=== PATIENT | female | born 1950 | race Caucasian/White ===

== ENCOUNTER → 2018-05-23 13:51 | Outpatient (CLI) | payer OTHER, SELFPAY ==
[2018-05-25 17:33] LABS: Fecal Immunochemical Test NOT DETECTED
== END ==
PROVIDERS: Visit Provider Registered Nurse
DX: Z12.11 Encounter for screening for malignant neoplasm of colon (principal)
CPT/HCPCS: 82274

== ENCOUNTER → 2018-05-28 09:57 | Outpatient (CLI) | payer OTHER, SELFPAY | PROVIDERS: Family Provider Family Medicine; PCP Family Medicine; Visit Provider Registered Nurse | DX: M85.852 Other specified disorders of bone density and structure, left thigh (principal); Z78.0 Asymptomatic menopausal state | CPT/HCPCS: 77080 ==

== ENCOUNTER → 2019-03-29 09:03 | Outpatient (CLI) | payer OTHER, SELFPAY ==
--- NOTE | 2019-03-29 09:05 | DI.RAD.S_ITS ---
PROCEDURE: XR KNEE LT 3V INDICATIONS: Left knee pain TECHNIQUE: 3 views of the left knee were acquired. COMPARISON: [facility], , KNEE 3V RIGHT, 06/12/2014, 16:04. FINDINGS: Bones: No fractures or dislocations but there is moderately severe medial facet patellofemoral joint osteoarthritis seen on the sunrise view, and mild to moderate medial compartment degenerative osteoarthritic change seen on the frontal weight bearing view.. No suspicious bony lesions. Soft tissues: No joint effusion. No suspicious soft tissue calcifications. IMPRESSION: Mild to moderate degenerative knee joint osteoarthritis seen at the medial compartment and more prominently present at the medial facet of the patellofemoral joint but no effusion or loose body or recent trauma is found. Dictated by: Kristopher Mcgraw M.D. on 03/29/2019 at 9:55 Approved by: Kristopher Mcgraw M.D. on 03/29/2019 at 9:57
--- NOTE | 2019-03-29 09:05 | DI.RAD.S_ITS ---
PROCEDURE: XR HIP W PEL IF DONE LT MIN 4V INDICATIONS: Bilateral hip pain TECHNIQUE: AP pelvis with lateral view(s) of the bilateral hip(s). COMPARISON: None. FINDINGS: Bones: No fractures or dislocations. Pelvic ring appears intact. No suspicious bony lesions. There is symmetric mild hip joint osteoarthritis perhaps slightly greater on the right than the left. Soft tissues: The visualized bowel gas pattern is normal. No suspicious soft tissue calcifications. Prior bilateral tubal ligation clips, central calcified presumed uterine fibroid centered exactly at the midline between these 2 ligation clips. IMPRESSION: Mild hip joint osteoarthritis present bilaterally, very slightly greater on the right than the left. Dictated by: Kristopher Mcgraw M.D. on 03/29/2019 at 9:57 Approved by: Kristopher Mcgraw M.D. on 03/29/2019 at 9:58
--- NOTE | 2019-03-29 09:05 | DI.RAD.S_ITS ---
PROCEDURE: XR KNEE RT 3V INDICATIONS: Right knee pain TECHNIQUE: 3 views of the right knee were acquired. COMPARISON: [facility], , KNEE 3V RIGHT, 06/12/2014, 16:04. FINDINGS: Bones: No fractures or dislocations. No suspicious bony lesions. At the medial compartment of the right knee there is a mild degree of degenerative joint space narrowing, previously the case also in May of 2014. At the medial facet of the patellofemoral joint there is moderately severe degenerative osteoarthritic change, slightly advanced from the comparison study in May of 2014. No effusion or loose body. Soft tissues: No joint effusion. No suspicious soft tissue calcifications. IMPRESSION: Slight interval worsening of degenerative right knee joint osteoarthritis involving the medial facet of the patellofemoral joint to a greater degree than the medial compartment of the knee on the frontal weight-bearing view. No effusion or loose body seen, no recent trauma found. Dictated by: Kristopher Mcgraw M.D. on 03/29/2019 at 9:58 Approved by: Kristopher Mcgraw M.D. on 03/29/2019 at 10:00
== END ==
PROVIDERS: PCP Registered Nurse; Visit Provider Registered Nurse
DX: M25.551 Pain in right hip (principal); M25.552 Pain in left hip; M25.562 Pain in left knee; M25.561 Pain in right knee; M16.0 Bilateral primary osteoarthritis of hip; M17.0 Bilateral primary osteoarthritis of knee
CPT/HCPCS: 73522; 73562

== ENCOUNTER → 2019-05-17 07:46 | Outpatient (CLI) | payer OTHER, SELFPAY ==
[2019-05-17 09:01] LABS: Hemoglobin A1C% w Est Avg Glu 5.3 % (4.0-6.0)
[2019-05-17 09:10] LABS: Cholesterol 237 mg/dL (140-199); HDL Cholesterol 64 mg/dL (40-60); LDL Cholesterol Calculated 163 mg/dL (<100); Triglycerides 51 mg/dL (35-150)
== END ==
PROVIDERS: PCP Registered Nurse; Visit Provider Registered Nurse
DX: E78.5 Hyperlipidemia, unspecified (principal); Z13.1 Encounter for screening for diabetes mellitus; E78.1 Pure hyperglyceridemia
CPT/HCPCS: 36415; 80061; 83036

== ENCOUNTER → 2019-05-23 09:44 | Outpatient (CLI) | payer OTHER, SELFPAY ==
--- NOTE | 2019-05-23 | DI.MG.S_ITS ---
BILATERAL DIGITAL SCREENING MAMMOGRAM 3D/2D WITH CAD: 05/23/2019 CLINICAL: Routine screening. Family history of breast cancer. Comparison is made to exams dated: 05/24/2017 mammogram, 01/16/2015 mammogram, and 01/17/2012 mammogram - [facility]. The tissue of both breasts is heterogeneously dense. This may lower the sensitivity of mammography. Current study was also evaluated with a Computer Aided Detection (CAD) system. There is a benign mass in the right breast. There also are benign calcifications in both breasts. No significant masses, calcifications, or other findings are seen in either breast. There has been no significant interval change. IMPRESSION: There is no mammographic evidence of malignancy. A 1 year screening mammogram is recommended. This exam was interpreted at Station ID: [id number]. NOTE: For mammograms, a report in lay terms will be sent to the patient. Approximately 15% of breast malignancies will not be visualized mammographically. In the management of a palpable breast mass, a negative mammogram must not discourage biopsy of a clinically suspicious lesion. Electronically Signed By: Shashank james/miranda:05/23/2019 11:47:51 letter sent: Normal Exam ACR BI-RADS Category 2: Benign Finding(s) 3342F
== END ==
PROVIDERS: PCP Registered Nurse; Visit Provider Registered Nurse
DX: Z12.31 Encounter for screening mammogram for malignant neoplasm of breast (principal); Z80.3 Family history of malignant neoplasm of breast
CPT/HCPCS: 77063; 77067

== ENCOUNTER → 2019-05-27 16:39 | Outpatient (CLI) | payer OTHER, SELFPAY ==
[2019-05-29 15:22] LABS: Fecal Immunochemical Test NOT DETECTED (NOT DETECTED)
== END ==
PROVIDERS: PCP Registered Nurse; Visit Provider Registered Nurse
DX: Z12.11 Encounter for screening for malignant neoplasm of colon (principal)
CPT/HCPCS: 82274

== ENCOUNTER → 2020-05-28 09:59 | Outpatient (CLI) | payer OTHER, SELFPAY ==
[2020-05-28 12:03] LABS: Cholesterol 206 mg/dL (140-199); HDL Cholesterol 58 mg/dL (40-60); LDL Cholesterol Calculated 126 mg/dL (<100); Triglycerides 109 mg/dL (35-150)
[2020-05-28 13:09] LABS: TSH w/ Reflex to FT4 1.62 uIU/mL (0.47-4.68)
== END ==
PROVIDERS: PCP Family Medicine; Referring Provider Family Medicine; Visit Provider Family Medicine
DX: Z12.11 Encounter for screening for malignant neoplasm of colon (principal); Z13.29 Encounter for screening for other suspected endocrine disorder; E78.5 Hyperlipidemia, unspecified
CPT/HCPCS: 36415; 80061; 84443

== ENCOUNTER → 2020-06-27 11:10 | Outpatient (CLI) | payer OTHER, SELFPAY ==
[2020-06-29 11:53] LABS: COVID19 Sendout Not Detected (Not Detect)
== END ==
PROVIDERS: PCP Family Medicine; Visit Provider Nurse Practitioner
DX: Z11.59 Encounter for screening for other viral diseases (principal)
CPT/HCPCS: 87635

== ENCOUNTER 2020-06-30 07:38 | Day surgery (SDC) | payer OTHER, SELFPAY ==
--- NOTE | 2020-06-30 | PATH_ITS ---
[facility] Accession Number: [id number] . 01 Material submitted: . colon - POLYP AT 15CM . 01 Clinical history: . SDC . 02 Diagnosis: Colon, Polyp at 15 cm, Biopsy: Hyperplastic polyp. MRV 07/02/2020 1019 Local . 02 Electronically signed: . Sofia Saul MD, Pathologist NPI- [id number] . 01 Gross description: . The specimen is received in formalin, labeled polyp at 15 cm and consists of two blanc fragments of soft tissue, measuring 0.6 x 0.5 x 0.2 cm in aggregate. The specimen is entirely submitted in cassette A1. ([id number]) /[facility] 07/01/2020 1746 Local . 02 Pathologist provided ICD-10: K63.5 . 02 CPT . 942576 Performed at: 01 [facility] [address] [facility], [place], [place] [id number] MD Ramo Lazo MD Phone: [phone] Performed at: 02 [facility] [place] [address] [place], [place] [id number] MD Sofia Saul MD Phone: [phone]
[2020-06-30 08:06] VITALS: BP 146/80; PULSE 66; RESP 16; TEMP 36; O2SAT 98; BMI 23.3
[2020-06-30] MEDS: LACTATED RINGERS 1,000 ML 200 ML IV (08:14)
--- NOTE | 2020-06-30 08:55 | PM.HP.1 ---
History of Present Illness History of Present Illness Date Patient Seen: 06/30/20 Time Patient Seen: 08:55 Chief complaint: SDC Narrative: Patient is a woman who has never had a colonoscopy she is here for her 1st colonoscopy. She has no family history of colon cancer. She does not have any blood in her stool. Patient History Medical History (Updated 06/30/20 @ 08:57 by Andre Baum MD) Anesthesia complication (Resolved ~1988) Callus of foot (Acute) Chronic low back pain (Acute) Clavicle fracture (Resolved) Foot pain (Chronic) Hallux valgus (acquired) (Acute) History of syncope (Acute) Measles (Resolved) Menopausal state (Chronic) Mumps (Resolved) Periodic health assessment, general screening, adult (Acute) Pes planus of both feet (Acute) Surgical History S/P BSO (bilateral salpingo-oophorectomy) (Acute) Status post tubal ligation (Resolved) Family & Social History Family History Brother Age: 72 Heart problem Father Alcoholism Heart disease Cancer of soft tissue of arm Mother CVA (cerebral vascular accident) Grandfather No problems noted. Grandmother No problems noted. Grandfather No problems noted. Grandmother No problems noted. Sister No problems noted. Social History: household members spouse Tobacco & Substance use: Smoking Status Never smoker alcohol intake current alcohol intake frequency holiday/special occasion Substance Use Type does not use Meds Home Medications and Allergies Home Medications Medication Instructions Recorded Confirmed Type multivitamin with minerals 3 tab PO DAILY tab 05/22/18 05/25/20 History Calcium with D3 PO 05/23/19 05/25/20 History omega-3 fatty acids 1,000 mg 2,000 mg PO DAILY 05/23/19 05/25/20 History capsule potassium PO 05/23/19 05/25/20 History clotrimazole-betamethasone 1 1 applictn TOP BID PRN #15 gram 05/29/20 Rx %-0.05 % topical cream terbinafine HCl 250 mg tablet 250 mg PO DAILY #90 tab 05/29/20 Rx Allergies Allergy/AdvReac Type Severity Reaction Status Date / Time codeine Allergy Mild Verified 06/27/20 11:09 Review of Systems Review of Systems Narrative: Had a back issue in the past due to degenerative disease ROS: Yes All systems reviewed with the patient and are negative except as otherwise documented Exam Vital Signs (past 8 hours): - 06/30/20 08:06 Temperature 96.8 F L Pulse Rate 66 Respiratory Rate 16 Blood Pressure 146/80 H Pulse Oximetry 98 Oxygen Delivery Method Room Air Narrative Exam Narrative: Pleasant cooperative patient no apparent distress. Lungs are clear to auscultation. No rales or rhonchi. Heart regular rate and rhythm no murmur gallop. Abdomen is soft nontender without mass. No obvious hernias. Patient is alert and oriented x3. Assessment & Plan Assessment & Plan narrative: The patient for a screening colonoscopy. I have discussed the procedure with them. Risks of bleeding, perforation which would necessitate major operation, failure to find remove all lesions, the potential tattoo were all discussed. All questions were answered. They wished to proceed.
--- NOTE | 2020-06-30 09:10 | PM.PREOP ---
Pre-operative Note COVID-19 COVID-19 status: Negative Result date/Date tested (Pos, Neg/Pending): 06/27/20 Interval Note History & Physical reviewed/Exam performed by Physician: Yes Changes to H&P: No ASA Class (for procedural sedation): I
[2020-06-30] MEDS: MIDAZOLAM 5 MG/5 ML VIAL IV (09:11)
[2020-06-30] MEDS: fentaNYL 250 MCG/5 ML INJ IV (09:11)
--- NOTE | 2020-06-30 09:39 | PM.OP.ENDO ---
Operative Date/Time/Diagnoses Date of procedure: 06/30/20 Time of procedure: 09:39 Pre-op diagnosis: Screening exam. This is her 1st colonoscopy. Post-op diagnosis: same (One small polyp at 15 cm. ) Procedure & Clinicians Study performed: Colonoscopy Same procedure as scheduled: Yes Indications: Screening Surgeon: Andre Baum Procedure Notes SCOAP/Timeout: Performed Procedure in detail: The patient was placed in the left lateral decubitus position and underwent IV sedation directed by the surgeon consisting of fentanyl and Versed. Digital exam was unremarkable. The scope was inserted and advanced through the rectum into the sigmoid, descending, transverse, and ascending colon. No lesions were seen. The cecum was reached identified by the ileocecal valve and the appendiceal opening. The scope was gradually brought out. One Polyp was found at 15 cm from the anal verge and was biopsied and removed. Was quite small.. The scope ultimately was retroflexed in the rectum. The appearance was remarkable for scarring an old hemorrhoidal disease. There was no active inflammation or ulceration.. The scope was removed and the patient tolerated the procedure well. Prep was excellent. Scope withdrawal time: 10 minutes (12 total) Sedation minutes: 24 Findings: polyp (One small polyp in the rectum) Specimen(s): other (Polyp) Complications: none Post-procedure Recommendations: Colonscopy in 5 years (If the lesion is not neoplastic (adenomatous) 10 years would be more appropriate.) Follow up: as needed Disposition: PACU
[2020-06-30 09:41] VITALS: BP 127/71; PULSE 61; RESP 12; TEMP 36.4; O2SAT 97
[2020-06-30 09:45] VITALS: BP 118/69; PULSE 53; RESP 10; O2SAT 96
[2020-06-30 09:49] VITALS: BP 122/68; PULSE 55; RESP 11; O2SAT 96
[2020-06-30 09:54] VITALS: BP 142/78; PULSE 65; RESP 18; TEMP 36.2; O2SAT 99
== END 2020-06-30 10:12 | disposition home or self-care (01) ==
PROVIDERS: PCP Family Medicine; Referring Provider Specialist; Visit Provider Specialist
PROC: 0DJD8ZZ Inspection of Lower Intestinal Tract, Via Natural or Artificial Opening Endoscopic (ICD-10-PCS; CPT 45378; principal; 2020-06-30 08:30)
DX: Z12.11 Encounter for screening for malignant neoplasm of colon (principal); K62.1 Rectal polyp
CPT/HCPCS: 45380; 99152; J2250; J3010

== ENCOUNTER → 2020-11-12 16:15 | Outpatient (CLI) | payer MEDICARE, SELFPAY ==
[2020-11-12] MEDS: COVID-19 VACC #1, MRNA(MOD) 100 MCG/0.5 ML VIAL IM (16:22)
== END ==
PROVIDERS: PCP Family Medicine; Visit Provider Internal Medicine
DX: Z23 Encounter for immunization (principal)
CPT/HCPCS: 0011A; 91301

== ENCOUNTER → 2020-12-10 16:09 | Outpatient (CLI) | payer MEDICARE, SELFPAY ==
[2020-12-10] MEDS: COVID-19 VACC #2, MRNA(MOD) 100 MCG/0.5 ML VIAL IM (16:13)
== END ==
PROVIDERS: PCP Family Medicine; Visit Provider Internal Medicine
DX: Z23 Encounter for immunization (principal)
CPT/HCPCS: 0012A; 91301

== ENCOUNTER → 2021-05-18 10:20 | Outpatient (CLI) | payer OTHER, SELFPAY ==
[2021-05-18 12:10] LABS: Alanine Aminotransferase 16 IU/L (<35); Albumin 4.3 g/dL (3.5-5.0); Albumin Globulin Ratio 1.4 (1.0-2.8); Alkaline Phosphatase 107 U/L (38-126); Aspartate Aminotransferase 31 IU/L (14-36); BUN Creatinine Ratio 26.4 (6-22); Bilirubin Total 0.6 mg/dL (0.2-1.3); Blood Urea Nitrogen 23 mg/dL (7-17); Calcium 9.7 mg/dL (8.4-10.2); Carbon Dioxide 30 mmol/L (22-32); Chloride 104 mmol/L (98-107); Estimated Glomerular Filt Rate > 60.0 mL/min (>60); Glucose 95 mg/dL (80-110); HEMOLYSIS < 15 (0-50); Potassium 4.7 mmol/L (3.4-5.1); Sodium 138 mmol/L (137-145); Total Protein 7.3 g/dL (6.3-8.2)
== END ==
PROVIDERS: PCP Family Medicine; Referring Provider Family Medicine; Visit Provider Family Medicine
DX: E78.5 Hyperlipidemia, unspecified (principal); Z12.31 Encounter for screening mammogram for malignant neoplasm of breast
CPT/HCPCS: 36415; 80053

== ENCOUNTER → 2021-07-20 15:17 | Outpatient (CLI) | payer OTHER, SELFPAY ==
--- NOTE | 2021-07-20 15:17 | DI.MG.S_ITS ---
BILATERAL DIGITAL SCREENING MAMMOGRAM 3D/2D WITH CAD: 07/20/2021 CLINICAL: Routine screening. Comparison is made to exams dated: 05/23/2019 mammogram, 05/24/2017 mammogram, and 01/16/2015 mammogram - [facility]. The tissue of both breasts is heterogeneously dense. This may lower the sensitivity of mammography. Current study was also evaluated with a Computer Aided Detection (CAD) system. There is a benign mass in the right breast. There also are benign calcifications in both breasts. No significant masses, calcifications, or other findings are seen in either breast. There has been no significant interval change. IMPRESSION: BENIGN There is no mammographic evidence of malignancy. A 1 year screening mammogram is recommended. This exam was interpreted at Station ID: [id number]. NOTE: For mammograms, a report in lay terms will be sent to the patient. Approximately 15% of breast malignancies will not be visualized mammographically. In the management of a palpable breast mass, a negative mammogram must not discourage biopsy of a clinically suspicious lesion. Electronically Signed By: Ramo peters/miranda:07/21/2021 08:17:24 letter sent: Normal Exam ACR BI-RADS Category 2: Benign Finding(s) 3342F
== END ==
PROVIDERS: PCP Family Medicine; Referring Provider Family Medicine; Visit Provider Family Medicine
DX: Z12.31 Encounter for screening mammogram for malignant neoplasm of breast (principal)
CPT/HCPCS: 77063; 77067

== ENCOUNTER → 2021-08-02 12:59 | Outpatient (CLI) | payer OTHER, SELFPAY ==
[2021-08-02 16:35] LABS: COVID19 -Nasal RAPID Negative (Negative)
== END ==
PROVIDERS: PCP Family Medicine; Visit Provider Physician Assistant
DX: Z01.812 Encounter for preprocedural laboratory examination (principal); Z20.822 Contact with and (suspected) exposure to COVID-19
CPT/HCPCS: 87635; C9803

== ENCOUNTER 2021-08-04 09:10 | Day surgery (SDC) | payer OTHER, SELFPAY ==
--- NOTE | 2021-08-03 19:25 | PM.OP.1 ---
Operative Date/Time/Diagnoses Date of procedure: 08/04/21 Time of procedure: 09:45 Procedure & Clinicians Procedure: Preoperative diagnoses: 1. Right significantcortical and sclerotic cataract 2. Astigmatism which is to be corrected with a toric intraocular lens implant. 3. Desire for a multifocal implant to correct all areas of distance to make her less glasses dependent. 4. Diplopia was need for prisms in glasses 5. Arthritis 5. High myopia Postoperative diagnoses: 1. Cataract removal with phacoemulsification with toric Panoptix multifocal posterior chamber intraocular lens implant placed. Procedure: Phacoemulsification with posterior chamber toric intraocular lens implant. Surgeon: Rafaela Terrell MD Complications: None Specimen: None Implant: TFAT 30 +12.5 [place] 083 Blood loss: None Anesthesia: Retrobulbar with monitored standby Description of procedure: Patient presents with a complaint of decreased vision due to cataract which is affecting activities of daily living. 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 The patient wants surgery to improve vision and astigmatism as well as a multifocal implant. She understands the extra risk of surgery during the COVID-19 epidemic and wishes to proceed. She has tested negative for active COVID-19 virus within 72 hours of the procedure. The patient was taken to the operating room and proparacaine drops placed. Indelible ink espinoza were placed at the 90 and 180 degree meridian. The patient was placed on the operating room table and given IV sedation. A retrobulbar block insert consisting of 6 cc of 2% xylocaine without epinephrine mixed half and half with 0.5% Marcaine with 1 cc of hyaluronidase added is placed between the medial and lateral 1/3 of the inferior orbital rim. The eye is manually massaged for 30 sec, prepped using Betadine solution, and draped in the usual sterile fashion. Temporal approach was made, a 1 mm side-port incision was made 90? from the proposed corneal wound. Phenylephrine 1.5% mixed with 1% xylocaine 0.2 cc was placed into the anterior chamber. Endocoat followed by Healon was then placed. A 2.6 mm clear incision with a 2.6 mm blade was placed at the 170 degree meridian. A 360 degree capsulorrhexis style capsulotomy was then performed with a cystitome needle on a Healon. Hydrodelineation and hydrodissection were performed. The phacoemulsification unit is introduced, and sculpting used to groove the central lens. It is then removed in chopping mode. Epi nucleus is removed with epinuclear mode and irrigation aspiration was used to remove the peripheral cortex. The posterior capsule is polished. The intraocular lens is selected, inspected, power confirmed, and placed in the posterior chamber at the desired meridian of 83? and carefully centered. The pupil was not constricted. The wound was stromally hydrated and tested for leaks, there was none and it was left sutureless. Vigamox 0.1 cc was placed into the anterior chamber. Kenalog 0.2 cc was placed in the superior subconjunctival space. A drop of antibiotic and was placed and the eye was patched and shielded. The patient was stable and returned to the recovery room in excellent condition. Dictated by: Rafaela Terrell MD Copy to: [facility] Same procedure as scheduled: Yes
--- NOTE | 2021-08-04 08:09 | PM.PREOP ---
Pre-operative Note COVID-19 COVID-19 status: Negative Interval Note History & Physical reviewed/Exam performed by Physician: Yes Changes to H&P: No
[2021-08-04] MEDS: PROPARACAINE 0.5% OPHTH SOL 2 DROPS EYE-OP ×2 (09:23→11:04)
[2021-08-04] MEDS: CATARACT EYE COMPOUND (10 DROPS/SYRINGE) 3 DROPS EYE-OP (09:31)
[2021-08-04 09:33] VITALS: BP 152/75; PULSE 51; RESP 16; TEMP 36.1; O2SAT 99; BMI 22.4
--- NOTE | 2021-08-04 11:11 | SUR.OPER ---
Supine on eye stretcher, head on extension cradle secured with tape. Arms tucked at sides with blanket. Pillow under knees.
[2021-08-04] MEDS: LIDOCAINE 2% 4 ML, BUPIVACAINE 0.5% (PF) 4 ML, HYALURONIDASE 150 UNIT INJ (11:13)
[2021-08-04] MEDS: HYALURONATE SODIUM 30 MG-10 MG/ML SYRINGES 1 BOX INTRAOCULA (11:27)
[2021-08-04] MEDS: MOXIFLOXACIN INJ 4 MG/0.8 ML VIAL 0.5 MG EYE-OP (11:27)
[2021-08-04] MEDS: ERYTHROMYCIN OPHTH 1 GM OINT 1 APPLIC EYE-RIGHT (11:27)
[2021-08-04] MEDS: PHENYLEPHRINE/LIDOCAINE VIAL (OR) 0.2 ML EYE-OP (11:28)
[2021-08-04] MEDS: TRIAMCINOLONE 50 MG/5 ML VIAL INJ (11:28)
[2021-08-04] MEDS: BALANCED SALT IRRIG SOLN NO.2 500 ML, EPINEPHrine 1 MG IRR (11:28)
[2021-08-04 12:06] VITALS: BP 144/66; PULSE 66; RESP 18; TEMP 36.6; O2SAT 99
== END 2021-08-04 12:15 | disposition home or self-care (01) ==
LOC: OR 09:12
PROVIDERS: PCP Family Medicine; Referring Provider Ophthalmology; Visit Provider Ophthalmology
PROC: (CPT 66984; principal; 2021-08-04 09:45)
DX: H25.811 Combined forms of age-related cataract, right eye (principal); H52.201 Unspecified astigmatism, right eye; H53.2 Diplopia; H52.10 Myopia, unspecified eye
CPT/HCPCS: 66984; J0171; J2704; J3301; J3470; V2788

== ENCOUNTER → 2021-08-16 12:58 | Outpatient (CLI) | payer OTHER, SELFPAY ==
[2021-08-16 15:27] LABS: COVID19 -Nasal RAPID Negative (Negative)
== END ==
PROVIDERS: PCP Family Medicine; Visit Provider Nurse Practitioner Family
DX: Z20.822 Contact with and (suspected) exposure to COVID-19 (principal); Z01.812 Encounter for preprocedural laboratory examination
CPT/HCPCS: 87635; C9803

== ENCOUNTER 2021-08-18 07:26 | Day surgery (SDC) | payer OTHER, SELFPAY ==
[2021-08-18] MEDS: PROPARACAINE 0.5% OPHTH SOL 2 DROPS EYE-OP (07:41)
[2021-08-18 07:44] VITALS: BP 125/77; PULSE 58; RESP 16; TEMP 36.8; O2SAT 95; BMI 22.1
[2021-08-18] MEDS: CATARACT EYE COMPOUND (10 DROPS/SYRINGE) 3 DROPS EYE-OP (07:49)
--- NOTE | 2021-08-18 08:01 | PM.PREOP ---
Pre-operative Note COVID-19 COVID-19 status: Negative Interval Note History & Physical reviewed/Exam performed by Physician: Yes Changes to H&P: No
--- NOTE | 2021-08-18 08:02 | P.OP_ITS ---
Operative Date/Time/Diagnoses Date of procedure: 08/18/21 Time of procedure: 08:45 Procedure & Clinicians Procedure: Preoperative diagnoses: 1. Significant left cortical and Nuclear sclerotic cataract 2. Astigmatism which is to be corrected with a toric intraocular lens implant. 3. Presbyopia which she which is which she elects to correct with a multifocal lens. 4. Arthritis 5. Degenerative joint disease 6. Diplopia corrected with prism glasses but tolerates contacts without. May need prisms after surgery. Postoperative diagnoses: 1. Cataract removal with phacoemulsification with toric posterior chamber intraocular lens implant placed. Procedure: Phacoemulsification with posterior chamber toric intraocular lens implant. Surgeon: Rafaela Terrell MD Complications: None Specimen: None Implant:TFAT40+12.5 [place] 086] Blood loss: None Anesthesia: Retrobulbar with monitored standby Description of procedure: Patient presents with a complaint of decreased vision due to cataract which is affecting activities of daily living especially night driving. The patient wants surgery to improve vision and astigmatism. She also is a high myope with presbyopia and is trying to be glasses independent and chooses a Panoptix multifocal lens. 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 The patient understands the extra risk of surgery during the COVID-19 epidemic and wishes to proceed. The patient has tested negative for active virus within 72 hours of the procedure. The patient was taken to the operating room and proparacaine drops placed. Indelible ink espinoza were placed at the 90 and 180 degree meridian. The patient was placed on the operating room table and given IV sedation. A retrobulbar block insert consisting of 6 cc of 2% xylocaine without epinephrine mixed half and half with 0.5% Marcaine with 1 cc of hyaluronidase added is placed between the medial and lateral 1/3 of the inferior orbital rim. The eye is manually massaged for 30 sec, prepped using Betadine solution, and draped in the usual sterile fashion. Temporal approach was made, a 1 mm side-port incision was made 90? from the proposed corneal wound. Phenylephrine 1.5% mixed with 1% xylocaine 0.2 cc was placed into the anterior chamber. Endocoat followed by Healon was then placed. A 2.6 mm clear incision with a 2.6 mm blade was placed at the 170 degree meridian. A 360 degree capsulorrhexis style capsulotomy was then performed with a cystitome needle on a Healon. Hydrodelineation and hydrodissection were performed. The phacoemulsification unit is introduced, and sculpting used to groove the central lens. It is then removed in chopping mode. Epi nucleus is removed with epinuclear mode and irrigation aspiration was used to remove the peripheral cortex. The posterior capsule is polished. The intraocular lens is selected, inspected, power confirmed, and placed in the posterior chamber at the desired meridian of 86? The pupil was not constricted. The wound was stromally hydrated and tested for leaks, there was none and it was left sutureless. Intracameral moxifloxacin 0.1 cc was placed into the anterior chamber. Kenalog 0.2 cc was placed in the superior subconjunctival space. A drop of antibiotic and was placed and the eye was patched and shielded. The patient was stable and returned to the recovery room in excellent condition. Dictated by: Rafaela Terrell MD Copy to: [facility] Same procedure as scheduled: Yes
--- NOTE | 2021-08-18 08:58 | SUR.OPER ---
Supine on eye stretcher, head on extension cradle secured with tape. Arms tucked at sides with blanket. Pillow under knees.
[2021-08-18] MEDS: HYALURONATE SODIUM 30 MG-10 MG/ML SYRINGES 1 BOX INTRAOCULA (09:01)
[2021-08-18] MEDS: MOXIFLOXACIN INJ 4 MG/0.8 ML VIAL 0.5 MG EYE-OP (09:01)
[2021-08-18] MEDS: LIDOCAINE 2% 4 ML, BUPIVACAINE 0.5% (PF) 4 ML, HYALURONIDASE 150 UNIT INJ (09:02)
[2021-08-18] MEDS: PHENYLEPHRINE/LIDOCAINE VIAL (OR) 0.2 ML EYE-OP ×2 (09:02)
[2021-08-18] MEDS: BALANCED SALT IRRIG SOLN NO.2 500 ML, EPINEPHrine 1 MG IRR (09:03)
[2021-08-18] MEDS: ERYTHROMYCIN OPHTH 1 GM OINT 1 APPLIC EYE-LEFT (09:04)
[2021-08-18 09:35] VITALS: BP 125/77; PULSE 58; RESP 16; TEMP 36.8; O2SAT 95
== END 2021-08-18 09:53 | disposition home or self-care (01) ==
PROVIDERS: PCP Family Medicine; Referring Provider Nurse Practitioner; Visit Provider Ophthalmology
PROC: (CPT 66984; principal; 2021-08-18 08:45)
DX: H25.812 Combined forms of age-related cataract, left eye (principal); H52.202 Unspecified astigmatism, left eye; H52.4 Presbyopia; H53.2 Diplopia
CPT/HCPCS: 66984; J0171; J2704; J3470; V2788

== ENCOUNTER → 2022-05-23 10:52 | Outpatient (CLI) | payer OTHER, SELFPAY ==
[2022-05-23 13:27] LABS: Alanine Aminotransferase 16 IU/L (<35); Albumin 4.2 g/dL (3.5-5.0); Albumin Globulin Ratio 1.4 (1.0-2.8); Alkaline Phosphatase 90 U/L (38-126); Aspartate Aminotransferase 30 IU/L (14-36); Bilirubin Total 0.6 mg/dL (0.2-1.3); Blood Urea Nitrogen 16 mg/dL (7-17); Calcium 8.9 mg/dL (8.4-10.2); Carbon Dioxide 26 mmol/L (22-32); Chloride 104 mmol/L (98-107); Cholesterol 217 mg/dL (140-199); Estimated Glomerular Filt Rate > 60 mL/min (>60); Globulin 2.9 g/dL (1.7-4.1); Glucose 87 mg/dL (80-110); HDL Cholesterol 57 mg/dL (40-60); HEMOLYSIS < 15 (0-50); LDL Cholesterol Calculated 133 mg/dL (<100); Potassium 3.9 mmol/L (3.4-5.1); Sodium 138 mmol/L (137-145); Total Protein 7.1 g/dL (6.3-8.2); Triglycerides 136 mg/dL (35-150)
[2022-05-23 13:41] LABS: Free T3, Triiodothyronine Free 3.89 pg/mL (2.77-5.27); Free T4, Direct Thyroxine 1.11 ng/dL (0.78-2.19)
[2022-05-23 13:55] LABS: Thyroid Stimulating Hormone 0.609 uIU/mL (0.47-4.68)
[2022-05-23 17:38] LABS: Hep C Virus Ab w/Reflex Quant NEGATIVE s/c (NEGATIVE)
== END ==
PROVIDERS: PCP Nurse Practitioner; Referring Provider Nurse Practitioner; Visit Provider Nurse Practitioner
DX: E78.5 Hyperlipidemia, unspecified (principal); E86.0 Dehydration; Z11.59 Encounter for screening for other viral diseases
CPT/HCPCS: 36415; 80053; 80061; 84439; 84443; 84481; 86803

== ENCOUNTER → 2022-10-19 10:13 | Outpatient (CLI) | payer OTHER, SELFPAY ==
[2022-10-19 15:15] LABS: Alanine Aminotransferase 21 IU/L (<35); Albumin Globulin Ratio 1.3 (1.0-2.8); Alkaline Phosphatase 104 U/L (38-126); Aspartate Aminotransferase 29 IU/L (14-36); BUN Creatinine Ratio 21.3 (6-22); Bilirubin Total 0.4 mg/dL (0.2-1.3); Blood Urea Nitrogen 16 mg/dL (7-17); Calcium 8.9 mg/dL (8.4-10.2); Carbon Dioxide 26 mmol/L (22-32); Chloride 102 mmol/L (98-107); Estimated Glomerular Filt Rate > 60 mL/min (>60); Globulin 3.1 g/dL (1.7-4.1); Glucose 103 mg/dL (80-110); HEMOLYSIS < 15 (0-50); Magnesium 1.8 mg/dL (1.6-2.3); Potassium 4.1 mmol/L (3.4-5.1); Sodium 136 mmol/L (137-145); Total Protein 7.1 g/dL (6.3-8.2)
[2022-10-19 15:20] LABS: Add Manual Diff / Slide Review NO; Basophils Absolute Auto 100 /uL (0-100); Basophils Percent Auto 1.3 % (0-2); Eosinophils Absolute Auto 200 /uL (0-450); Eosinophils Percent Auto 2.9 % (2-4); Hematocrit 38.6 % (36-46); Hemoglobin 13.1 g/dL (12.0-16.0); Lymphocytes Absolute Auto 2100 /uL (1100-4500); Lymphocytes Percent Auto 29.2 % (25-40); Mean Corpuscular HGB Conc 33.9 % (30-36); Mean Corpuscular Hemoglobin 29.6 PG (26-34); Mean Corpuscular Volume 87.4 fL (80-100); Monocytes Absolute Auto 600 /uL (0-900); Monocytes Percent Auto 7.6 % (3-14); Neutrophils Absolute Auto 4300 /uL (1500-7000); Platelet Count 307 X10^3/uL (150-400); Red Blood Cell Count 4.41 X10^6/uL (4.0-5.2); Red Cell Distribution Width 12.7 % (11.6-14.8); White Blood Cell Count 7.2 X10^3/uL (4.5-11.0)
[2022-10-19 15:36] LABS: Free T3, Triiodothyronine Free 3.84 pg/mL (2.77-5.27); Free T4, Direct Thyroxine 1.08 ng/dL (0.78-2.19)
[2022-10-19 15:50] LABS: Thyroid Stimulating Hormone 1.25 uIU/mL (0.47-4.68)
== END ==
PROVIDERS: PCP Nurse Practitioner; Referring Provider Nurse Practitioner; Visit Provider Nurse Practitioner
DX: R55 Syncope and collapse (principal); R42 Dizziness and giddiness
CPT/HCPCS: 36415; 80053; 83735; 84439; 84443; 84481; 85025; 93005; 93010

== ENCOUNTER → 2023-05-26 09:05 | Outpatient (CLI) | payer OTHER, SELFPAY ==
[2023-05-26 10:32] LABS: Cholesterol 184 mg/dL (140-199); HDL Cholesterol 70 mg/dL (40-60); LDL Cholesterol Calculated 102 mg/dL (<100); Triglycerides 62 mg/dL (35-150)
--- NOTE | 2023-05-26 11:25 | DI.RAD.S_ITS ---
Bone Density Report Name: SPIKE RODNEY Age: 73 Sex: Female Ethnicity: White Date of : 1950 Indication: postmenopausal; screening for osteoporosis; Referring Provider: PRISCILA NGUYEN Study: Bone densitometry was performed. Exam Date: May 26, 2023 Accession number: [id number] Bone Density: Region BMD T-score Z-score Classification AP Spine(L1, L2, L3) 1.032 0.1 2.4 Normal Femoral Neck (Left) 0.696 -1.4 0.7 Osteopenia Total Hip (Left) 0.948 0.0 1.8 Normal Femoral Neck (Right) 0.747 -0.9 1.1 Normal Total Hip (Right) 0.943 0.0 1.8 Normal Total Hip Mean 0.946 0.0 1.8 Normal World Health Organization criteria for BMD impression classify patients as: Normal (T-score at or above -1.0), Osteopenia (T-score between -1.0 and -2.5), or Osteoporosis (T-score at or below -2.5). 10-year Fracture Risk(1): Major Osteoporotic Fracture 10% Hip Fracture 1.9% Reported Risk Factors: [place] (), Neck BMD=0.696, BMI=23.0 (1) FRAX(R) Version 3.08. Fracture probability calculated for an untreated patient. Fracture probability may be lower if the patient has received treatment. Impression: The patient has low bone mass, based on the Left Femoral Neck T-score. The patient has an estimated ten-year risk of hip fracture of 1.9% and an estimated ten-year risk of major fracture of 10%, based on the WHO FRAX algorithm. Discussion: BONE DENSITY IS LOW AT ONE OR MORE SKELETAL SITES. This patient's lowest T-score is low at one or more skeletal sites. It meets the World Health Organization's (WHO) criteria for low bone mass (T-score between -1.0 and -2.5). The patient's 10-year risk of fracture as calculated by FRAX is less than the threshold where pharmacological therapy is recommended by the National Osteoporosis Foundation (NOF). However, all treatment decisions require clinical judgment and consideration of individual patient factors, including patient preferences, comorbidities, previous drug use, risk factors not captured in the FRAX model (e.g., frailty, falls, vitamin D deficiency, increased bone turnover, interval significant decline in bone density) and possible under or overestimation of fracture risk by FRAX. The patient should follow a healthful lifestyle (good nutrition with adequate calcium and vitamin D, and appropriate weight-bearing exercise). Follow-Up: Consider repeating this study in 2 to 3 years to reassess this patient's status, or sooner if there is some new clinical indication. Reported by: MIKE SCHAFFER M.D. on 05/26/2023 11:57:00 AM.
--- NOTE | 2023-05-26 11:25 | DI.MG.S_ITS ---
BILATERAL DIGITAL SCREENING MAMMOGRAM 3D/2D WITH CAD: 05/26/2023 CLINICAL: Routine screening. Family history of breast cancer. Comparison is made to exams dated: 07/20/2021 mammogram, 05/23/2019 mammogram, and 05/24/2017 mammogram - [facility]. Both breasts are heterogeneously dense, which may obscure small masses (category c / 51-75% glandular tissue). Current study was also evaluated with a Computer Aided Detection (CAD) system. There is a benign mass in the right breast. There also are benign calcifications in both breasts. No significant masses, calcifications, or other findings are seen in either breast. There has been no significant interval change. IMPRESSION: BENIGN There is no mammographic evidence of malignancy. A 1 year screening mammogram is recommended. Based on the Tyrer Cuzick model (a risk assessment model) the patient's lifetime risk is 4.4% and her 10 year risk is 4.0%. According to the ACR, ACS, and NCCN guidelines, an annual breast MRI exam along with mammogram is recommended if the patient's lifetime risk is 20% or greater. This exam was interpreted at Station ID: [id number]. NOTE: For mammograms, a report in lay terms will be sent to the patient. Approximately 15% of breast malignancies will not be visualized mammographically. In the management of a palpable breast mass, a negative mammogram must not discourage biopsy of a clinically suspicious lesion. Electronically Signed By: Shashank james/miranda:05/26/2023 17:21:45 letter sent: Normal Exam ACR BI-RADS Category 2: Benign Finding(s) 3342F
[2023-05-29 10:23] LABS: Fecal Immunochemical Test Negative (Negative)
== END ==
PROVIDERS: PCP Nurse Practitioner; Referring Provider Nurse Practitioner; Visit Provider Nurse Practitioner
DX: M85.852 Other specified disorders of bone density and structure, left thigh (principal); Z12.31 Encounter for screening mammogram for malignant neoplasm of breast; Z13.820 Encounter for screening for osteoporosis; Z80.3 Family history of malignant neoplasm of breast; Z78.0 Asymptomatic menopausal state; E78.5 Hyperlipidemia, unspecified; Z12.11 Encounter for screening for malignant neoplasm of colon
CPT/HCPCS: 36415; 77063; 77067; 77080; 80061; 82274

== ENCOUNTER → 2023-06-02 11:56 | Outpatient (CLI) | payer OTHER, SELFPAY ==
--- NOTE | 2023-06-02 11:57 | DI.RAD.S_ITS ---
PROCEDURE: XR BONE LENGTH SCANOGRAM INDICATIONS: leg length discrepancy TECHNIQUE: A single frontal standing view of both lower extremities acquired, with measuring ruler situated between the legs. COMPARISON: None. FINDINGS: Right: Total leg length is 92.3 cm. Left: Total leg length is 93.4 cm. IMPRESSION: Leg length as above. Dictated by: Pepe Warren RRA Interpreted: Reinaldo Casillas MD on 06/08/2023 at 12:12 Transcribed by: MITCH on 06/08/2023 at 12:12 Approved by: Reinaldo Casillas M.D. on 06/08/2023 at 17:33
== END ==
PROVIDERS: PCP Nurse Practitioner; Referring Provider Nurse Practitioner; Visit Provider Nurse Practitioner
DX: M21.70 Unequal limb length (acquired), unspecified site (principal)
CPT/HCPCS: 77073

== ENCOUNTER → 2024-05-21 08:21 | Outpatient (CLI) | payer OTHER, SELFPAY ==
[2024-05-21 10:09] LABS: Alanine Aminotransferase 18 IU/L (<35); Albumin Globulin Ratio 1.5 (1.0-2.8); Alkaline Phosphatase 98 U/L (38-126); Aspartate Aminotransferase 28 IU/L (14-36); Bilirubin Total 0.6 mg/dL (0.2-1.3); Blood Urea Nitrogen 24 mg/dL (7-17); Calcium 9.4 mg/dL (8.4-10.2); Carbon Dioxide 30 mmol/L (22-32); Chloride 104 mmol/L (98-107); Cholesterol 192 mg/dL (140-199); Estimated Glomerular Filt Rate > 60 mL/min (>60); Globulin 2.7 g/dL (1.7-4.1); Glucose 98 mg/dL (80-110); HDL Cholesterol 70 mg/dL (40-60); HEMOLYSIS < 15 (0-50); LDL Cholesterol Calculated 110 mg/dL (<100); Potassium 4.8 mmol/L (3.4-5.1); Sodium 137 mmol/L (137-145); Total Protein 6.7 g/dL (6.3-8.2); Triglycerides 60 mg/dL (35-150)
[2024-05-21 10:28] LABS: Free T3, Triiodothyronine Free 4.04 pg/mL (2.77-5.27); Free T4, Direct Thyroxine 1.13 ng/dL (0.78-2.19)
[2024-05-21 10:42] LABS: Thyroid Stimulating Hormone 1.63 uIU/mL (0.47-4.68)
== END ==
PROVIDERS: PCP Nurse Practitioner; Referring Provider Nurse Practitioner; Visit Provider Nurse Practitioner
DX: E78.2 Mixed hyperlipidemia (principal); M85.851 Other specified disorders of bone density and structure, right thigh; M85.852 Other specified disorders of bone density and structure, left thigh
CPT/HCPCS: 36415; 80053; 80061; 84439; 84443; 84481

== ENCOUNTER → 2024-05-22 08:24 | Outpatient (CLI) | payer OTHER, SELFPAY ==
[2024-05-22 10:42] LABS: Creatinine Urine Random 134.05 mg/dL
[2024-05-22 10:49] LABS: Microalbumin Urine Random 1.3 mg/dL (0-1.6)
== END ==
PROVIDERS: PCP Nurse Practitioner; Referring Provider Nurse Practitioner; Visit Provider Nurse Practitioner
DX: E78.2 Mixed hyperlipidemia (principal); M85.851 Other specified disorders of bone density and structure, right thigh; M85.852 Other specified disorders of bone density and structure, left thigh
CPT/HCPCS: 82043; 82570

== ENCOUNTER → 2024-06-10 14:55 | Outpatient (CLI) | payer OTHER, SELFPAY ==
--- NOTE | 2024-06-10 14:55 | DI.MG.S_ITS ---
BILATERAL DIGITAL SCREENING MAMMOGRAM 3D/2D WITH CAD: 06/10/2024 CLINICAL: Routine screening. Family history of breast cancer. Comparison is made to exams dated: 05/26/2023 mammogram, 07/20/2021 mammogram, 05/23/2019 mammogram, and 05/24/2017 mammogram - [facility]. Both breasts are heterogeneously dense, which may obscure small masses (category c / 51-75% glandular tissue). Current study was also evaluated with a Computer Aided Detection (CAD) system. There is a benign mass in the right breast. There also are benign calcifications in both breasts. Additionally, there are benign vascular calcifications in both breasts. No significant masses, calcifications, or other findings are seen in either breast. There has been no significant interval change. IMPRESSION: BENIGN There is no mammographic evidence of malignancy. A 1 year screening mammogram is recommended. Based on the Tyrer Cuzick model (a risk assessment model) the patient's lifetime risk is 4.1% and her 10 year risk is 4.1%. According to the ACR, ACS, and NCCN guidelines, an annual breast MRI exam along with mammogram is recommended if the patient's lifetime risk is 20% or greater. This exam was interpreted at Station ID: [id number]. NOTE: For mammograms, a report in lay terms will be sent to the patient. Approximately 15% of breast malignancies will not be visualized mammographically. In the management of a palpable breast mass, a negative mammogram must not discourage biopsy of a clinically suspicious lesion. Electronically Signed By: Daniele [email or web address]:06/11/2024 08:21:05 letter sent: Normal Exam ACR BI-RADS Category 2: Benign Finding(s) 3342F
== END ==
PROVIDERS: PCP Nurse Practitioner; Referring Provider Nurse Practitioner; Visit Provider Nurse Practitioner
DX: Z12.31 Encounter for screening mammogram for malignant neoplasm of breast (principal); Z80.3 Family history of malignant neoplasm of breast; R92.333 Mammographic heterogeneous density, bilateral breasts
CPT/HCPCS: 77063; 77067

== ENCOUNTER → 2024-07-05 10:53 | Outpatient (CLI) | payer OTHER, SELFPAY ==
[2024-07-05 12:37] LABS: Influenza A - CEPHEID Flu A NEGATIVE (NEGATIVE); Influenza B - CEPHEID Flu B NEGATIVE (NEGATIVE); Respiratory Syncytial Virus Negative (Negative)
[2024-07-05 14:23] LABS: COVID-19 CEPHEID 4-PLEX PCR Negative (Negative)
== END ==
PROVIDERS: PCP Nurse Practitioner; Visit Provider Physician Assistant Surgical
DX: J02.9 Acute pharyngitis, unspecified (principal); R21 Rash and other nonspecific skin eruption; R09.89 Other specified symptoms and signs involving the circulatory and respiratory systems
CPT/HCPCS: 0241U; 87070

== ENCOUNTER → 2025-06-25 15:00 | Outpatient (CLI) | payer OTHER, SELFPAY ==
--- NOTE | 2025-06-25 15:02 | DI.MG.S_ITS ---
MM screening mammo BI: 06/25/2025. BI-RADS: 2 CLINICAL: 75-year old female for bilateral screening mammogram. Tyrer-Cuzick lifetime risk of 6.2%. Current reported family history of breast cancer: sister. PRIOR EXAMS 06/10/2024, 05/26/2023, 07/20/2021, 05/23/2019. MAMMOGRAPHY TECHNIQUE: 2D and 3D (tomosynthesis) digital mammographic views obtained, with additional images as needed for full coverage. Current study was also evaluated with a Computer Aided Detection (CAD) system. DENSITY C. The breasts are heterogeneously dense, which may obscure small masses. MAMMOGRAPHY FINDINGS Right: Benign-appearing mass noted on the right. There are no suspicious masses, calcifications, or other findings in the breast. Left: No suspicious mass, asymmetry, microcalcification, or other abnormality seen. IMPRESSION: Right * No evidence of malignancy with benign findings. Left * No evidence of malignancy. RECOMMENDATIONS Bilateral * Annual screening mammography. OVERALL ASSESSMENT CATEGORY BI-RADS-2: Benign. The [employer] recommends annual screening mammography beginning at age 40 for women with average risk of breast cancer. ELECTRONICALLY SIGNED: Shashank Barnard M.D. on 06/26/2025 at 06:52:46 AM PT Interpreting Station ID: [id number]
== END ==
LOC: MAMMO 15:01
PROVIDERS: PCP Family Medicine; Referring Provider Family Medicine; Visit Provider Family Medicine
DX: Z12.31 Encounter for screening mammogram for malignant neoplasm of breast (principal); R92.333 Mammographic heterogeneous density, bilateral breasts; Z80.3 Family history of malignant neoplasm of breast
CPT/HCPCS: 77063; 77067